=== PATIENT | female | born 1960 | race Hispanic/Latino ===

== ENCOUNTER 2019-07-07 20:40 | Emergency (ER) | payer BC, SELFPAY ==
[2019-07-07 21:16] VITALS: BP 163/79; PULSE 83; RESP 20; TEMP 36.6; O2SAT 100
--- NOTE | 2019-07-07 21:24 | DI.RAD.S_ITS ---
PROCEDURE: XR CHEST 1V INDICATIONS: SOB, cough, known COVID+ TECHNIQUE: One view of the chest was acquired. COMPARISON: [facility], , CHEST 1 VIEW, 05/05/2017, 17:26. FINDINGS: Surgical changes and devices: None. Lungs and pleura: Lungs demonstrate subtle bilateral lower lobe alveolar opacities. No dense consolidation. No pleural effusions or pneumothorax. Mediastinum: Mediastinal contours appear normal. Heart size is normal. Bones and chest wall: No suspicious bony lesions. Overlying soft tissues appear unremarkable. IMPRESSION: 1. Hazy bibasilar alveolar opacities consistent with known infection. 2. No pleural effusion or pneumothorax. Dictated by: Graciela Samuel M.D. on 07/07/2019 at 21:48 Approved by: Graciela Samuel M.D. on 07/07/2019 at 21:49
--- NOTE | 2019-07-07 21:33 | ED_ITS ---
HPI - SOB/Dyspnea General Chief Complaint: Shortness of Breath/Dyspnea Stated Complaint: SOB, Coughing Time Seen by Provider: 07/07/19 20:41 Source: patient and family Mode of arrival: Ambulatory Limitations: no limitations History of Present Illness HPI Narrative: 58-year-old female diabetic smoker with known leos virus presents with her significant other and a chief complaint of increasing dry and hacking cough over the past few days. She has a positive swab at an outside facility about 1 week ago. She denies any chest pain nor nausea or vomiting but does have nasal congestion, sore throat and dry hacking cough. She denies any significant difficulty with breathing. This is the 1st time she has left her home and about a week. She denies any hemoptysis or other sputum production. Her cough is worse laying flat. MD Complaint: cough Onset (ago): day(s) Severity: moderate Consistency/Duration: constant Relieving factors: upright position Exacerbating factors: lying flat Associated symptoms: fever and wheezing Treatment prior to arrival: bronchodilator Related Data Home oxygen amount: none Previous Rx's Medication Instructions Recorded levothyroxine 0.137 mg PO QAM #7 tab 01/26/16 lisinopril 20 mg PO QDAY #30 tab 05/05/17 benzonatate [Tessalon Perles] 100 mg PO TID PRN #14 cap 07/07/19 Allergies Allergy/AdvReac Type Severity Reaction Status Date / Time cephalexin [From KEFLEX] Allergy Unknown Verified 06/07/18 18:24 Penicillins [PENICILLINS] Allergy Unknown Verified 06/07/18 18:24 Review of Systems Constitutional Constitutional: Denies chills, Reports fatigue, Reports fever(s), Denies frequent falls, Denies lethargy and Denies weakness Eyes Eyes: Denies change in vision, Denies eye discharge, Denies irritation and Denies loss of vision ENT Ears, Nose, Mouth, and Throat: Denies change in voice, Denies dizziness, Denies neck pain, Denies sore throat and Denies throat swelling Cardiovascular Cardiovascular: Denies chest pain, Denies irregular heart rhythm, Denies lightheadedness, Denies palpitations, Denies dyspnea, Denies dyspnea on exertion and Denies orthopnea Respiratory Respiratory: Reports cough, Denies dyspnea, Denies dyspnea on exertion and Denies wheezing Gastrointestinal Gastrointestinal: Denies abdominal pain, Denies change in bowel habits, Denies diarrhea, Denies nausea and Denies vomiting Genitourinary Genitourinary: Denies hematuria, Denies flank pain, Denies urinary incontinence and Denies urinary urgency Musculoskeletal Musculoskeletal: Denies back pain, Denies muscle weakness, Denies neck pain, Denies numbness and Denies tingling Integumentary/Breasts Skin/Breast: Denies pruritus, Denies erythema, Denies rash and Denies wounds Neurologic Neurologic: Denies behavioral changes, Denies confusion, Denies dizziness, Denies frequent falls, Denies loss of vision, Denies numbness, Denies tingling and Denies weakness Psychiatric Psychiatric: Denies anxiety, Denies behavioral changes, Denies confusion, Denies depression, Denies homicidal ideation and Denies suicidal ideation Endocrine Endocrine: Reports fatigue, Denies flushing and Denies palpitations Hematologic/Lymphatic Hematologic/Lymphatic: Denies easy bruising Allergic/Immunologic Allergic/Immunologic: Denies urticaria, Denies throat swelling and Denies wheezing Patient History Social History Smoking Status: Never smoker alcohol intake: current Smoking Status: Never smoker Exam Narrative Exam Narrative: GENERAL: [58] year old patient appears stated age. Well- nourished, well-developed patient, in mild distress. HEAD: Atraumatic. Normocephalic. EYES: Pupils equal round and reactive. Extraocular motions intact. No scleral icterus. No injection or drainage. ENT: Nose without bleeding, purulent drainage. Throat without erythema, tonsillar hypertrophy or exudate. Airway patent. NECK: Trachea midline. Non tender CARDIOVASCULAR: Regular rate and rhythm without murmurs, gallops, or rubs. RESPIRATORY: Faint crackles in B/L bases GASTROINTESTINAL: Abdomen soft, non-tender, nondistended. EXTREMITIES: No edema or joint tenderness. BACK: Nontender without deformity or crepitance. No flank tenderness. NEURO: AOx3. SKIN: No rash or erythema of visible areas Initial Vital Signs Initial Vital Signs: Vital Signs Temperature 97.9 F 07/07/19 21:16 Pulse Rate 83 07/07/19 21:16 Respiratory Rate 20 07/07/19 21:16 Blood Pressure 163/79 H 07/07/19 21:16 Pulse Oximetry 100 07/07/19 21:16 Course Orders Ordered: ED Orders 07/07/19 21:24 XR chest 1V Stat Vital Signs Vital signs: Vital Signs - 8 hr 07/07/19 21:16 Temperature 97.9 F Pulse Rate 83 Respiratory Rate 20 Blood Pressure 163/79 H Pulse Oximetry 100 MDM - SOB/Dyspnea Imaging Data Chest x-ray: Radiologist's Impression: [address] [address] XRay Report Signed Patient: Kristine Auguste [facility]#: [id number] : 2Acct:[id number] Age/Sex: 58 / FDate of Service: 07/07/19 Loc: ED Accession Number: [id number] Procedure: XR chest 1V Ordering Provider: Aki Winston D.O. PROCEDURE: XR CHEST 1V INDICATIONS: SOB, cough, known COVID+ TECHNIQUE: One view of the chest was acquired. COMPARISON: [facility], CHEST 1 VIEW, 05/05/2017, 17:26. FINDINGS: Surgical changes and devices: None. Lungs and pleura: Lungs demonstrate subtle bilateral lower lobe alveolar opacities. No dense consolidation. No pleural effusions or pneumothorax. Mediastinum: Mediastinal contours appear normal. Heart size is normal. Bones and chest wall: No suspicious bony lesions. Overlying soft tissues appear unremarkable. IMPRESSION: 1. Hazy bibasilar alveolar opacities consistent with known infection. 2. No pleural effusion or pneumothorax. Dictated by: Graciela Samuel M.D. on 07/07/2019 at 21:48 Approved by: Graciela Samuel M.D. on 07/07/2019 at 21:49 [facility] Narrative Medical decision making narrative: Patient has very reassuring exam and stable vitals with minimal work of breathing. CXR is consistent with COVID viral pneumonia Discharge Plan Departure Patient Disposition: Home Clinical Impression: 2019 novel coronavirus detected, Pneumonia, viral Discharge Date/Time: 07/07/19 22:00 Instructions: DI for Viral Upper Respiratory Infection -- Adult Activity Restrictions/Additional Instructions: *You have been diagnosed with [ viral pneumonia from coronavirus] *What to do: * per recommendations from the CDC and the [facility] Department of Health * stay home except to get medical care. Restrict activities outside your home, except for getting medical care. Do not go to work, school, or public areas. Avoid using public transportation, ride sharing, or taxis. * separate yourself from other people in your home. * call ahead before visiting your doctor * Wear a facemask * Cover your coughs and sneezes * Clean your hands often * Avoid sharing household items * Clean all high-touch services every day * Monitor your symptoms and seek prompt medical attention if your illness is worsening, particularly with difficulty in breathing. Discussed continuing home isolation * for individuals with symptoms who are confirmed or suspected cases of COVID-19 and are directed to care for themselves at home, discontinue home isolation under the following conditions: 1. At least 72 hours have passed since recovery, defined as resolution of fever without the use of fever reducing medications, and improvement in respiratory symptoms (cough, shortness of breath) AND, 2. At least 7 days have passed since symptoms 1st appeared Individuals with laboratory confirmed COVID-19 who have not had any symptoms may discontinue home isolation when at least 7 days have passed since the date of their 1st COVID-19 diagnostic test and have had no subsequent illness Prescriptions: New benzonatate [Tessalon Perles] 100 mg capsule 100 mg PO TID PRN (Reason: cough) Qty: 14 RF: 0 No Action levothyroxine 137 MCG tablet 0.137 mg PO QAM Qty: 7 RF: 0 lisinopril 20 MG tablet 20 mg PO QDAY Qty: 30 RF: 0
--- NOTE | 2019-07-10 14:19 | PC.NURSE ---
Received call from PT who states that prescription from Dr. Winston was not signed and could not be filled. Called in prescription to [facility] at pt request.
--- NOTE | 2019-07-10 16:58 | PC.NURSE ---
Pt's called back, stating that [facility] still did not have script. Called [facility] and spoke w/ pharmacist, gave prescription information. No questions or concerns.
== END 2019-07-07 22:00 | disposition home or self-care (01) ==
PROVIDERS: Emergency Provider Emergency Medicine
DX: U07.1 COVID-19 (principal); J12.89 Other viral pneumonia
CPT/HCPCS: 71045; 99281; 99283

== ENCOUNTER → 2019-08-04 16:34 | Outpatient (CLI) | payer BC, SELFPAY ==
--- NOTE | 2019-08-04 16:36 | DI.RAD.S_ITS ---
PROCEDURE: XR CHEST 2V INDICATIONS: seen 07/06 in ER (+)Covid 19 w/viral pneumonia TECHNIQUE: 2 views of the chest were acquired. COMPARISON: [facility], CR, XR CHEST 1V, 07/07/2019, 21:27. FINDINGS: Surgical changes and devices: None. Lungs and pleura: There has been interval improvement in the aeration of the lungs. The previously noted patchy areas of airspace disease have significantly decreased in the interim. There may be mild residual areas of right lower lobe airspace disease. No new or increasing areas of consolidation are evident. No effusion or pneumothorax is identified. Mediastinum: Mediastinal contours are normal. Heart size is normal. Bones and chest wall: No suspicious bony abnormalities. Soft tissues appear unremarkable. IMPRESSION: Improving aeration of the lungs with minimal residual right lower lobe consolidation. Dictated by: Fritz Harris M.D. on 08/04/2019 at 16:19 Approved by: Fritz Harris M.D. on 08/04/2019 at 16:20
== END ==
PROVIDERS: Referring Provider Physician Assistant; Visit Provider Physician Assistant
DX: U07.1 COVID-19 (principal); J12.89 Other viral pneumonia
CPT/HCPCS: 71046

== ENCOUNTER 2020-07-19 23:37 | Emergency (ER) | payer BC, SELFPAY ==
[2020-07-19 23:55] VITALS: BP 154/84; PULSE 97; RESP 22; TEMP 37.3; O2SAT 98
[2020-07-20] LABS: Add Manual Diff / Slide Review NO; Basophils Absolute Auto 100 /uL (0-100); Eosinophils Absolute Auto 100 /uL (0-450); Eosinophils Percent Auto 0.5 % (2-4); Hematocrit 42.1 % (36-46); Hemoglobin 14.2 g/dL (12.0-16.0); Lymphocytes Absolute Auto 2000 /uL (1100-4500); Mean Corpuscular HGB Conc 33.6 % (30-36); Mean Corpuscular Hemoglobin 30.1 PG (26-34); Mean Corpuscular Volume 89.4 fL (80-100); Monocytes Absolute Auto 900 /uL (0-900); Neutrophils Absolute Auto 8600 /uL (1500-7000); Neutrophils Percent Auto 73.5 % (50-75); Platelet Count 237 X10^3/uL (150-400); Red Blood Cell Count 4.71 X10^6/uL (4.0-5.2); Red Cell Distribution Width 13.1 % (11.6-14.8); White Blood Cell Count 11.8 X10^3/uL (4.5-11.0)
[2020-07-20] MEDS: ONDANSETRON 4 MG/2 ML INJ IV (00:08)
[2020-07-20] MEDS: SODIUM CHLORIDE 0.9% 1,000 ML 1000 ML IV (00:09)
[2020-07-20 00:11] LABS: Alanine Aminotransferase 28 IU/L (<35); Albumin 4.3 g/dL (3.5-5.0); Alkaline Phosphatase 138 U/L (38-126); Aspartate Aminotransferase 21 IU/L (14-36); BUN Creatinine Ratio 43.2 (6-22); Bilirubin Total 1.7 mg/dL (0.2-1.3); Blood Urea Nitrogen 19 mg/dL (7-17); Calcium 9.8 mg/dL (8.4-10.2); Carbon Dioxide 26 mmol/L (22-32); Chloride 98 mmol/L (98-107); Estimated Glomerular Filt Rate > 60.0 mL/min (>60); Globulin 4.1 g/dL (1.7-4.1); Glucose 317 mg/dL (70-100); HEMOLYSIS < 15 (0-50); Lipase 39 U/L (23-300); Potassium 4.1 mmol/L (3.4-5.1); Sodium 134 mmol/L (137-145); Total Protein 8.4 g/dL (6.3-8.2)
[2020-07-20] MEDS: levoFLOXacin 500 MG/100 ML PIGGYBACK 100 MG IV (00:27)
[2020-07-20 00:29] LABS: Bacteria Urine Many (>30); Culture Indicated Urine Specimen Cultured; RBC Urine 1-5/HPF (0-5/HPF); Squamous Epithelial Cell Urine 1-5 /HPF (0-5/HPF); WBC Urine >100/HPF (0-5/HPF)
--- NOTE | 2020-07-20 00:32 | ED.ABDPAIN ---
HPI - Abdominal Pain General Chief Complaint: Abdominal Pain Stated Complaint: Chills, vomiting brown stuff yesterday Time Seen by Provider: 07/19/20 23:40 Source: patient Mode of arrival: Ambulatory Limitations: no limitations History of Present Illness HPI narrative: 59-year-old female nonsmoker with history of hypothyroid, asthma and gallbladder disease presents with a chief complaint of fever, shaking chills as well as lower abdominal pain, nausea and vomiting over the past few days. She has become fatigued, dizzy and lightheaded. She denies any chest pain or shortness of breath. She has had no runny nose, sore throat or cough. She does have a history of gallbladder disease and states this feels somewhat like that, however she denies upper abdominal pain or any association with eating. She states perhaps her emesis was dark yesterday but she has no history of liver disease, bleeding ulcers, varices or significant alcohol abuse. She takes no blood thinners. She does have lower abdominal discomfort and frequent urination along with burning and urgency. She denies any change in her bowel habits. She states her pain is worse when she moves and improves with rest. She denies any radiation of her pain MD complaint: abdominal pain Onset (ago): day(s) Pain Consistency: constant Location: suprapubic Severity: moderate Quality: cramping, stabbing and aching Radiation: none Migration to: no migration Relieving factors: rest Exacerbating factors: movement Associated symptoms: nausea, vomiting, fever and chills Related Data Previous Rx's Medication Instructions Recorded levothyroxine 0.137 mg PO QAM #7 tab 01/26/16 albuterol sulfate 90 mcg/actuation 2 puff INHALATION Q4-6H PRN #18 08/04/19 aerosol inhaler gram ciprofloxacin HCl 500 mg PO BID #14 tab 07/20/20 hydrocodone-acetaminophen 1 tab PO Q4-6H PRN #10 tab 07/20/20 Allergies Allergy/AdvReac Type Severity Reaction Status Date / Time cephalexin [From KEFLEX] Allergy Unknown Verified 08/04/19 16:02 Penicillins [PENICILLINS] Allergy Unknown Verified 08/04/19 16:02 Review of Systems Constitutional Constitutional: Reports body ache(s), Reports chills, Denies fatigue, Denies fever(s), Denies frequent falls, Denies lethargy and Denies weakness Eyes Eyes: Denies change in vision, Denies eye discharge, Denies irritation and Denies loss of vision ENT Ears, Nose, Mouth, and Throat: Denies change in voice, Denies dizziness, Denies neck pain, Denies sore throat and Denies throat swelling Cardiovascular Cardiovascular: Denies chest pain, Denies irregular heart rhythm, Denies lightheadedness, Denies palpitations, Denies dyspnea, Denies dyspnea on exertion and Denies orthopnea Respiratory Respiratory: Denies cough, Denies dyspnea, Denies dyspnea on exertion and Denies wheezing Gastrointestinal Gastrointestinal: Reports abdominal pain, Denies change in bowel habits, Denies diarrhea, Reports nausea and Reports vomiting Musculoskeletal Musculoskeletal: Denies neck pain and Denies numbness Integumentary/Breasts Skin/Breast: Denies pruritus, Denies erythema, Denies rash and Denies wounds Neurologic Neurologic: Denies behavioral changes, Denies confusion, Denies dizziness, Denies frequent falls, Denies loss of vision, Denies numbness and Denies weakness Psychiatric Psychiatric: Denies anxiety, Denies behavioral changes, Denies confusion, Denies depression, Denies homicidal ideation and Denies suicidal ideation Endocrine Endocrine: Denies fatigue, Denies flushing and Denies palpitations Hematologic/Lymphatic Hematologic/Lymphatic: Denies easy bruising Allergic/Immunologic Allergic/Immunologic: Denies urticaria, Denies throat swelling and Denies wheezing Patient History Social History Smoking Status: Never smoker alcohol intake: current Smoking Status: Never smoker Exam Narrative Exam Narrative: GENERAL: [59] year old patient appears stated age. Well-nourished, well-developed patient, in mild distress. HEAD: Atraumatic. Normocephalic. EYES: Pupils equal round and reactive. Extraocular motions intact. No scleral icterus. No injection or drainage. ENT: Nose without bleeding, purulent drainage. Throat without erythema, tonsillar hypertrophy or exudate. Airway patent. NECK: Trachea midline. Non tender CARDIOVASCULAR: Regular rate and rhythm without murmurs, gallops, or rubs. RESPIRATORY: Clear to auscultation. Breath sounds equal bilaterally. No wheezes, rales, or rhonchi. GASTROINTESTINAL: Abdomen soft, mild suprapubic tenderness, nondistended. Bowel sounds present in all 4 quadrants EXTREMITIES: No edema or joint tenderness. BACK: Nontender without deformity or crepitance. No flank tenderness. NEURO: AOx3. SKIN: No rash or erythema of visible areas Initial Vital Signs Initial Vital Signs: Vital Signs Temperature 99.1 F 07/19/20 23:55 Pulse Rate 97 H 07/19/20 23:55 Respiratory Rate 22 07/19/20 23:55 Blood Pressure 154/84 H 07/19/20 23:55 Pulse Oximetry 98 07/19/20 23:55 Course Orders Ordered: ED Orders 07/19/20 23:55 Complete Blood Count AUTO DIFF Stat Comprehensive Metabolic Panel Stat Lipase Stat 07/20/20 00:03 Urine Culture Stat Urine Microscopic Stat 07/20/20 00:52 CT abdomen pelvis w con Stat Ondansetron HCl (Ondansetron 4 Mg/2 Ml Inj) 4 mg IV Q4HR PRN PRN Reason: Nausea And Vomiting Last Admin: 07/20/20 00:08 Dose: 4 mg Documented by: CHAY Discontinued Medications Hydrocodone Bitart/Acetaminophen (Hydrocodone/Acet 5/325 Prepack) 1 bottle MISC SEEINSTR ONE Stop: 07/20/20 02:08 Sodium Chloride (Normal Saline 0.9%) 1,000 mls @ 1,000 mls/hr IV BOLUS ONE Stop: 07/20/20 00:54 Last Admin: 07/20/20 00:09 Dose: 1,000 mls/hr Documented by: CHAY Levofloxacin (Levaquin) 500 mg in 100 mls @ 100 mls/hr IV NOW ONE Stop: 07/20/20 01:12 Last Infusion: 07/20/20 01:52 Dose: 0 mls/hr Documented by: Admin: 07/20/20 00:27 Dose: 100 mls/hr Documented by: ANKITA Ondansetron HCl (Ondansetron 4 Mg Odt Prepack) 1 bottle MISC SEEINSTR ONE Stop: 07/20/20 02:08 Vital Signs Vital signs: Vital Signs - 8 hr 07/19/20 23:55 Temperature 99.1 F Pulse Rate 97 H Respiratory Rate 22 Blood Pressure 154/84 H Pulse Oximetry 98 MDM - Abdominal Pain Lab Data Result diagrams: 07/19/20 23:55 07/19/20 23:55 Labs: Lab Results 07/19/20 07/19/20 07/20/20 Range/Units 23:55 23:55 00:03 WBC 11.8 H (4.5-11.0) X10^3/uL RBC 4.71 (4.0-5.2) X10^6/uL Hgb 14.2 (12.0-16.0) g/dL Hct 42.1 (36-46) % MCV 89.4 (80-100) fL MCH 30.1 (26-34) PG MCHC 33.6 (30-36) % RDW 13.1 (11.6-14.8) % Plt Count 237 (150-400) X10^3/uL Neut % (Auto) 73.5 (50-75) % Lymph % (Auto) 17.0 L (25-40) % [place] % (Auto) 8.0 (3-14) % Eos % (Auto) 0.5 L (2-4) % Baso % (Auto) 1.0 (0-2) % Neut # (Auto) 8600 H (1475-4891) /uL Lymph # (Auto) 2000 (3101-2221) /uL [place] # (Auto) 900 (0-900) /uL Eos # (Auto) 100 (0-450) /uL Baso # (Auto) 100 (0-100) /uL Sodium 134 L (137-145) mmol/L Potassium 4.1 (3.4-5.1) mmol/L Chloride 98 (98-107) mmol/L Carbon Dioxide 26 (22-32) mmol/L BUN 19 H (7-17) mg/dL Creatinine 0.44 L (0.52-1.04) mg/dL Estimated GFR > 60.0 (>60) mL/min BUN/Creatinine Ratio 43.2 H (6-22) Glucose 317 H (70-100) mg/dL Calcium 9.8 (8.4-10.2) mg/dL Total Bilirubin 1.7 H (0.2-1.3) mg/dL AST 21 (14-36) IU/L ALT 28 (<35) IU/L Alkaline Phosphatase 138 H (38-126) U/L Total Protein 8.4 H (6.3-8.2) g/dL Albumin 4.3 (3.5-5.0) g/dL Globulin 4.1 (1.7-4.1) g/dL Albumin/Globulin Ratio 1.0 (1.0-2.8) Lipase 39 (23-300) U/L Urine RBC 1-5/hpf (0-5/HPF) Urine WBC >100/hpf H (0-5/HPF) Ur Squamous Epith Cells 1-5 /hpf (0-5/HPF) Urine Bacteria Many (>30) H (None) Ur Culture Indicated? Specimen cultured Point of care testing: Urine Dip Bedside Urine Glucose 1000 mg/dl Bedside Urine Bilirubin - Negative Bedside Urine Ketone +++ 80 Urine Specific [place] 1.030 Bedside Urine Occult Blood +++ Bedside Urine pH 6.0 Bedside Urine Protein ++ 100 Bedside Urine Urobilinogen - Negative Bedside Urine Nitrite - Negative Bedside Urine Leukocytes + [address] scan - abdomen/pelvis: Radiologist's Impression: Diffuse thickening of urinary bladder wall, possible cystitis MDM Narrative Medical decision making narrative: Multiple etiologies for patient's symptoms considered including: [UTI thought most likely given urinary frequency, urgency, foul smell, lower abdominal pain versus bowel obstruction (thought unlikely given lack of findings on imaging) versus gallbladder disease, considered given her history as well as slight elevation in bilirubin, however absolutely no pain in epigastrium, right upper quadrant and no findings on imaging] Patient's symptoms improved over duration of stay with above-stated therapies. Pain control, no vomiting, tolerating orals Findings and discharge diagnosis discussed with patient/family followed by verbalization of understanding Return precautions discussed with patient/family whom verbalize understanding. Discharge Plan Departure Patient Disposition: Home Clinical Impression: UTI (urinary tract infection) Qualifiers: Urinary tract infection type: acute cystitis Hematuria presence: with hematuria Qualified Code(s): N30.01 - Acute cystitis with hematuria Instructions: DI for Urinary Tract Infection (UTI) Activity Restrictions/Additional Instructions: *You have been diagnosed with [abdominal pain due to urinary tract infection with acute cystitis] *What to do: *Take medications as directed: [facility] *Follow up with your primary care provider in 2-3 days, call for an appointment. Let them know you were seen in the Emergency Department and that we ask that you be seen in follow up *Return to ER if you should have any new, worsening or concerning symptoms, such as [increasing pain, persistent vomiting, other bothersome symptoms] Prescriptions: New ciprofloxacin HCl 500 mg tablet 500 mg PO BID Qty: 14 RF: 0 hydrocodone-acetaminophen 5-325 mg tablet 1 tab PO Q4-6H PRN (Reason: pain) Qty: 10 RF: 0 No Action albuterol sulfate 90 mcg/actuation HFA aerosol inhaler 2 puff INHALATION Q4-6H PRN (Reason: shortness of breath or wheezing) Qty: 18 RF: 0 levothyroxine 137 MCG tablet 0.137 mg PO QAM Qty: 7 RF: 0 Referrals: [facility] [Outside] Stand Alone Forms: Work Release Note
--- NOTE | 2020-07-20 00:52 | DI.CT.S_ITS ---
PROCEDURE: CT ABDOMEN PELVIS W CON INDICATIONS: fever, vomiting, significant lower abdomen pain TECHNIQUE: After the administration of intravenous contrast, 5 mm thick sections acquired from the diaphragm to the symphysis. 5 mm coronal and sagittal reformats were acquired. For radiation dose reduction, the following was used: automated exposure control, adjustment of mA and/or kV according to patient size. COMPARISON: None. FINDINGS: Image quality: Excellent. ABDOMEN: Lung bases: Lung bases are clear. Heart size is normal. Solid organs: Liver is normal in size and enhancement. Gallbladder appears normal. Biliary system is non dilated. Pancreas enhances normally. Spleen is normal in size and enhancement. No adrenal nodules. Kidneys demonstrate normal size and enhancement, but with right greater than left voym-re-ikconldo hydronephrosis. There is slight urothelial enhancement and thickening, a subtle finding, present bilaterally Peritoneum and bowel: Bowel loops demonstrate normal wall thickness and caliber. No free fluid or air. Nodes and vessels: No retroperitoneal or mesenteric adenopathy by size criteria. Aorta and inferior vena cava are normal in size. Miscellaneous: No ventral hernias. PELVIS: Genitourinary: Bladder wall thickness is normal. Miscellaneous: No inguinal hernias or adenopathy. Bones: No suspicious bony lesions. No vertebral body compression fractures. IMPRESSION: A urinary tract infection appears present, as indicated by mild bilateral urothelial contrast enhancement and slight thickening. This is a relatively subtle finding. There appears to be associated right greater than left hydronephrosis, and a slight degree of perinephric edema on the right is seen. The urinary tract stone is not found. No intestinal obstruction or perforation suspected. Probable fibroid uterus given heterogeneity. Dictated by: Rosalio Mendez M.D. on 07/20/2020 at 10:27 Approved by: Rosalio Mendez M.D. on 07/20/2020 at 10:30
[2020-07-20 02:23] VITALS: BP 127/64; PULSE 92; RESP 16; O2SAT 99
[2020-07-20] MEDS: HYDROCODONE/ACET 5/325 PREPACK 1 BOTTLE MISC (02:26)
[2020-07-20] MEDS: ONDANSETRON 4 MG ODT PREPACK 1 BOTTLE MISC (02:26)
== END 2020-07-20 02:30 | disposition home or self-care (01) ==
PROVIDERS: Emergency Provider Emergency Medicine
DX: N30.01 Acute cystitis with hematuria (principal); R11.2 Nausea with vomiting, unspecified; R10.30 Lower abdominal pain, unspecified
CPT/HCPCS: 36415; 74177; 80053; 81003; 81015; 83690; 85025; 87077; 87086; 87186; 96361; 96365; 96375; 99284; J1956; J2405; Q9967

== ENCOUNTER 2023-01-05 15:48 | Emergency (ER) | payer BC, SELFPAY ==
[2023-01-05 15:52] VITALS: BP 104/62; PULSE 89; RESP 18; TEMP 36.7; O2SAT 98; BMI 33.6
[2023-01-05 16:02] VITALS: PULSE 88; RESP 13; O2SAT 96
[2023-01-05 16:03] VITALS: BP 138/65; PULSE 85; RESP 14; O2SAT 96
--- NOTE | 2023-01-05 16:33 | ED_ITS ---
HPI - General Adult General Chief complaint: Dizziness Stated complaint: feels dizzy since yesterday, multiple falls Time Seen by Provider: 01/05/23 16:17 Source: patient Mode of arrival: Wheelchair History of Present Illness HPI narrative: Patient is a 62-year-old female who is here for evaluation of just over 24 hours of feeling dizzy. She states she woke up yesterday morning and felt like the room is spinning. She did have some fullness in her right ear yesterday. Stated that every time she would stand up she would fall over and then become dizzy again. She is having a slight headache. She is a diabetic but is not on insulin and takes no medications for this and does not check her blood sugar. She denies any specific injuries from the falls. No chest pain or shortness of breath. Related Data Previous Rx's Medication Instructions Recorded levothyroxine 137 mcg tablet 0.137 mg PO QAM #7 tabs 01/26/16 albuterol sulfate 90 mcg/actuation 2 puff inhalation Q4-6H PRN 08/04/19 aerosol inhaler shortness of breath or wheezing #18 grams ciprofloxacin HCl 500 mg tablet 500 mg PO BID #14 tabs 07/20/20 hydrocodone 5 mg-acetaminophen 325 1 tab PO Q4-6H PRN pain #10 tabs 07/20/20 mg tablet meclizine 25 mg tablet 25 mg PO BID PRN dizziness #20 tabs 01/05/23 Allergies Allergy/AdvReac Type Severity Reaction Status Date / Time cephalexin [From KEFLEX] Allergy Unknown Verified 08/04/19 16:02 Penicillins [PENICILLINS] Allergy Unknown Verified 08/04/19 16:02 Review of Systems Constitutional Constitutional: Reports system reviewed and no additional complaints, except as documented ENT Ears, Nose, Mouth, and Throat: Reports system reviewed and no additional complaints, except as documented Cardiovascular Cardiovascular: Reports system reviewed and no additional complaints, except as documented Respiratory Respiratory: Reports system reviewed and no additional complaints, except as documented Gastrointestinal Gastrointestinal: Reports system reviewed and no additional complaints, except as documented Integumentary/Breasts Skin/Breast: Reports system reviewed and no additional complaints, except as documented Neurologic Neurologic: Reports system reviewed and no additional complaints, except as documented Hematologic/Lymphatic On Anticoagulants: No Patient History Social History (Reviewed 01/05/23 @ 17:35 by ANDRES Vu Smoking Status: Never smoker alcohol intake: current Smoking Status: Never smoker Substance Use Type: does not use Exam Initial Vital Signs Initial Vital Signs: Vital Signs Temperature 98.1 F 01/05/23 15:52 Pulse Rate 89 01/05/23 15:52 Respiratory Rate 18 01/05/23 15:52 Blood Pressure 104/62 01/05/23 15:52 Pulse Oximetry 98 01/05/23 15:52 Oxygen Delivery Method Room Air 01/05/23 15:52 HENMT Head: normal to inspection and normocephalic Eyes General: Yes appearance normal, both eyes and all related structures Resp Effort & Inspection: normal respiratory effort Auscultation: clear to auscultation bilaterally Cardio Rate: regular rate Rhythm: regular rhythm Neuro General: patient alert, patient awake, patient oriented x3 and moves all extremities Speech: speech normal Gait: normal gait Motor: muscle tone normal throughout Extrem General: normal to inspection and capillary refill normal Course Orders Ordered: ED Orders 01/05/23 16:20 Basic Metabolic Panel Stat Complete Blood Count AUTO DIFF Stat 01/05/23 16:22 EKG-12 Lead Stat Discontinued Medications Sodium Chloride (Normal Saline 0.9%) 1,000 mls @ 1,000 mls/hr IV BOLUS ONE Stop: 01/05/23 17:31 Last Admin: 01/05/23 16:50 Dose: 1,000 mls/hr Documented By: JOSÉ MIGUEL Meclizine HCl (Meclizine Hcl 12.5 Mg Tablet) 25 mg PO NOW ONE Stop: 01/05/23 16:33 Last Admin: 01/05/23 16:49 Dose: 25 mg Documented By: JOSÉ MIGUEL Vital Signs Vital signs: Vital Signs - 8 hr 01/05/23 15:52 01/05/23 16:02 01/05/23 16:03 Temperature 98.1 F Pulse Rate 89 88 85 Respiratory Rate 18 13 14 Blood Pressure 104/62 Pulse Oximetry 98 96 96 Oxygen Delivery Method Room Air 01/05/23 16:03 Temperature Pulse Rate Respiratory Rate Blood Pressure 138/65 Pulse Oximetry Oxygen Delivery Method Medical Decision Making Lab Data Lab results reviewed: Yes I reviewed the patient's lab results. 01/05/23 16:20 01/05/23 16:20 Labs: Lab Results 01/05/23 Range/Units 16:20 WBC 6.9 (4.5-11.0) X10^3/uL RBC 4.00 (4.0-5.2) X10^6/uL Hgb 12.2 (12.0-16.0) g/dL Hct 35.8 L (36-46) % MCV 89.5 (80-100) fL MCH 30.6 (26-34) PG MCHC 34.2 (30-36) % RDW 13.6 (11.6-14.8) % Plt Count 192 (150-400) X10^3/uL Neut % (Auto) 69.4 (50-75) % Lymph % (Auto) 22.5 L (25-40) % [place] % (Auto) 6.0 (3-14) % Eos % (Auto) 1.5 L (2-4) % Baso % (Auto) 0.6 (0-2) % Neut # (Auto) 4800 (1811-3687) /uL Lymph # (Auto) 1500 (0325-8995) /uL [place] # (Auto) 400 (0-900) /uL Eos # (Auto) 100 (0-450) /uL Baso # (Auto) 0 (0-100) /uL Sodium 133 L (137-145) mmol/L Potassium 4.5 (3.4-5.1) mmol/L Chloride 100 (98-107) mmol/L Carbon Dioxide 26 (22-32) mmol/L BUN 19 H (7-17) mg/dL Creatinine 0.50 L (0.52-1.04) mg/dL Estimated GFR > 60 (>60) mL/min BUN/Creatinine Ratio 38.0 H (6-22) Glucose 448 H (80-110) mg/dL Calcium 9.2 (8.4-10.2) mg/dL Point of Care Testing Glucose POC 435 Point of care testing: Point of Care Testing Glucose POC 435 ECG Data Attestation: I personally reviewed and interpreted this ECG as follows: Interpretation: Sinus rhythm Ventricular rate is 79 Normal axis Normal QRS Normal QTC No ST T wave changes MDM Narrative Medical decision making narrative: Low suspicion for CVA/TIA. She does have symptoms that are consistent with peripheral vertigo. It is positional when she turns her head. It occurred when she woke up. She is no other new neurologic symptoms. She is significantly hyperglycemic. She know she is diabetes but does not take her blood sugar at home. She is a complete resolution of symptoms after the meclizine and fluids. No indication for head CT. She was informed to contact her primary doctor to discuss her high blood pressure. Was sent home with a prescription for meclizine. She was given return precautions. She expressed understanding and agreement. Discharge Plan Departure Patient Disposition: Home Clinical Impression: Vertigo, Hyperglycemia Instructions: DI for Vertigo Activity Restrictions/Additional Instructions: Recommend that you continue to take all of your medications as directed. Contact your primary doctor for follow-up to discuss your symptoms today and also your elevated blood sugar. Return to the emergency department for new or worsening symptoms. Prescriptions: New meclizine 25 mg tablet 25 mg PO BID PRN (Reason: dizziness) Qty: 20 0RF No Action albuterol sulfate 90 mcg/actuation HFA aerosol inhaler 2 puff INHALATION Q4-6H PRN (Reason: shortness of breath or wheezing) Qty: 18 0RF levothyroxine 137 MCG tablet 0.137 mg PO QAM Qty: 7 0RF ciprofloxacin HCl 500 mg tablet 500 mg PO BID Qty: 14 0RF hydrocodone-acetaminophen 5-325 mg tablet 1 tab PO Q4-6H PRN (Reason: pain) Qty: 10 0RF Stand Alone Forms: Patient Portal/API
[2023-01-05 16:40] LABS: Add Manual Diff / Slide Review NO; Basophils Absolute Auto 0 /uL (0-100); Basophils Percent Auto 0.6 % (0-2); Eosinophils Absolute Auto 100 /uL (0-450); Eosinophils Percent Auto 1.5 % (2-4); Hematocrit 35.8 % (36-46); Hemoglobin 12.2 g/dL (12.0-16.0); Lymphocytes Absolute Auto 1500 /uL (1100-4500); Lymphocytes Percent Auto 22.5 % (25-40); Mean Corpuscular HGB Conc 34.2 % (30-36); Mean Corpuscular Hemoglobin 30.6 PG (26-34); Mean Corpuscular Volume 89.5 fL (80-100); Monocytes Absolute Auto 400 /uL (0-900); Neutrophils Absolute Auto 4800 /uL (1500-7000); Neutrophils Percent Auto 69.4 % (50-75); Platelet Count 192 X10^3/uL (150-400); Red Cell Distribution Width 13.6 % (11.6-14.8); White Blood Cell Count 6.9 X10^3/uL (4.5-11.0)
[2023-01-05 16:47] LABS: Blood Urea Nitrogen 19 mg/dL (7-17); Calcium 9.2 mg/dL (8.4-10.2); Carbon Dioxide 26 mmol/L (22-32); Chloride 100 mmol/L (98-107); Estimated Glomerular Filt Rate > 60 mL/min (>60); Glucose 448 mg/dL (80-110); HEMOLYSIS 30 (0-50); Potassium 4.5 mmol/L (3.4-5.1); Sodium 133 mmol/L (137-145)
[2023-01-05] MEDS: MECLIZINE HCL 12.5 MG TABLET 25 MG PO (16:49)
[2023-01-05] MEDS: SODIUM CHLORIDE 0.9% 1,000 ML 1000 ML IV (16:50)
[2023-01-05 17:59] VITALS: BP 118/95; PULSE 85; RESP 20; TEMP 37; O2SAT 100
== END 2023-01-05 18:01 | disposition home or self-care (01) ==
PROVIDERS: Emergency Provider Emergency Medicine
DX: R42 Dizziness and giddiness (principal); E11.65 Type 2 diabetes mellitus with hyperglycemia; R07.9 Chest pain, unspecified
CPT/HCPCS: 80048; 82962; 85025; 93005; 96360; 99284

== ENCOUNTER 2023-01-11 19:07 | Observation (INO) | payer BC, SELFPAY ==
[2023-01-11] VITALS (17 sets, daily range): BP systolic 106–139; BP diastolic 53–82; PULSE 83–98; RESP 12–32; TEMP 37.7–38.3; O2SAT 94–99; BMI 36.6
[2023-01-11] MEDS: SODIUM CHLORIDE 0.9% 1,000 ML 1000 ML IV ×2 (19:48→21:42)
--- NOTE | 2023-01-11 19:56 | PC.NURSE ---
Addendum entered by Catalina Pascual R.N. 01/12/23 00:39: Wound measures 8cm in length and 6cm in width. Original Note: Open, weeping wound above coccyx with non-blanchable discoloration of blackened tissue with dark red.
--- NOTE | 2023-01-11 21:00 | ED.BACK ---
HPI - Back Pain/Injury General Chief Complaint: Back Pain/Injury Stated Complaint: CYST ON BUTTOCKS Time Seen by Provider: 01/11/23 20:56 Source: patient Mode of arrival: Ambulatory Limitations: no limitations History of Present Illness HPI Narrative: This is a 62-year-old female with untreated diabetes, hypothyroidism, history of vertigo who presents with complaint of pain and wound on her buttocks that she noticed 2 or 3 days ago. Patient states there has been some drainage it has been painful there is some odor. She states she is had chills on and off, some fevers at home. She denies chest pain or shortness of breath no abdominal or back pain. No nausea or vomiting. She is had some constipation but has had bowel movements. No black or bloody stools. She states she is had difficulty keeping the area clean. She is had some urinary frequency no dysuria. Patient states she was not feeling any pain in that area before but does not look in the area regularly. She went to the walk-in clinic and was referred here. She states she is had diabetes for several years, she does not take any of her diabetic medications for at least a couple years because it would cause diarrhea. She does take levothyroxine still. She denies any history of hypertension, dyslipidemia heart attack or stroke. She is had issues with vertigo and takes meclizine as needed. She is been able to ambulate without any issues. Patient states no prior surgeries. She states she has a known gallbladder that is troublesome but she has not ever wanted to have it out. She states allergic to penicillin she gets a rash but states she is had amoxicillin without issue. Patient states no tobacco, alcohol or illicit. She has set up appointment to establish with primary care later in the month. Related Data Home Medications Medication Instructions Recorded Confirmed meclizine 25 mg tablet 25 mg PO BID PRN dizziness 01/11/23 01/11/23 Previous Rx's Medication Instructions Recorded levothyroxine 137 mcg tablet 0.137 mg PO QAM #7 tabs 01/26/16 Allergies Allergy/AdvReac Type Severity Reaction Status Date / Time cephalexin [From KEFLEX] Allergy Unknown Verified 01/11/23 18:23 Penicillins [PENICILLINS] Allergy Unknown Verified 01/11/23 18:23 Review of Systems Review of Systems ROS Unobtainable: All systems reviewed & are unremarkable except as noted in HPI and below Patient History Medical History Obesity Social History Smoking Status: Never smoker alcohol intake: current Smoking Status: Never smoker Substance Use Type: does not use Exam Narrative Exam Narrative: GENERAL: Alert and oriented x three, obese female in [id number] distress. HEENT: Head normocephalic, atraumatic, EOMI, pupils reactive, face symmetric, moist mucous membranes NECK: Supple, full range of motion CARDIOVASCULAR: Regular rate and rhythm without murmurs, rubs or gallops. RESPIRATORY: Breath sounds equal bilaterally, no wheezes rales or rhonchi. ABDOMEN: Soft, nontender. Normoactive bowel sounds all 4 quadrants. No guarding or rebound, rigidity, no mass : No CVA tenderness, patient has large 8 x 6 cm wound on her buttocks at the top of the gluteal crease, there is some purple discoloration and when cleansed has firm indurated area with no palpable abscess but it able to express some purulent fluid. There is quite a bit of odor. Patient has quite a bit of stool strict on her underwear and in the area. She is mild tenderness over the area and I am able to obtain a good wound culture without much pain. There is some mild erythema that extends along the crease of the buttocks but no induration moving towards the rectal opening. EXTREMITIES: Normal range of motion, no clubbing or edema. Neurovascularly intact NEUROLOGICAL: Cranial nerves II through XII grossly intact. Moving all extremities. Normal gait. Patient is able to ambulate to and from the bathroom. SKIN: Warm, dry, no petechiae, no rashes or lesions. Initial Vital Signs Initial Vital Signs: Vital Signs Temperature 101 F H 01/11/23 19:16 Pulse Rate 95 H 01/11/23 19:16 Respiratory Rate 18 01/11/23 19:16 Blood Pressure 139/82 01/11/23 19:16 Pulse Oximetry 98 01/11/23 19:16 Oxygen Delivery Method Room Air 01/11/23 19:16 Course Orders Ordered: ED Orders 01/11/23 19:22 EKG-12 Lead Stat RT Consult Eval and Treat NOW 01/11/23 20:30 Wound Culture and Gram Stain Stat 01/11/23 20:50 Complete Blood Count AUTO DIFF Stat Comprehensive Metabolic Panel Stat Lactate (Lactic Acid) Stat Lipase Stat PTT Partial Thromboplastin Artur Stat Procalcitonin Stat Prothrombin Time INR Stat 01/11/23 21:00 Blood Culture Stat 01/11/23 21:19 Consult to [facility] [place] - Analytic Manager Stat 01/11/23 21:34 CT abdomen pelvis w con Stat Acetaminophen (Acetaminophen 325 Mg Tablet) 650 mg PO Q6H PRN PRN Reason: Fever/Mild Pain (1-3) Last Admin: 01/12/23 01:41 Dose: 650 mg Documented By: ZURDO Al Hydrox/Mg Hydrox/Simethicone (Mag Hydrox/Alum/Simeth 30 Ml Udc) 30 ml PO Q6HR PRN PRN Reason: Dyspepsia Gabapentin (Gabapentin 100 Mg Capsule) 100 mg PO TID GEETA Clindamycin Phosphate (Cleocin) 900 mg in 50 mls @ 50 mls/hr IV Q6H GEETA Last Admin: 01/12/23 03:19 Dose: 50 mls/hr Documented By: Infusion: 01/11/23 23:04 Dose: Infused Documented By: Infusion: 01/11/23 22:18 Dose: 50 mls/hr Documented By: Infusion: 01/11/23 22:02 Dose: 0 mls/hr Documented By: Admin: 01/11/23 21:43 Dose: 50 mls/hr Documented By: JOSSELYN Clindamycin Phosphate 600 mg/ (Sodium Chloride) 104 mls @ 104 mls/hr IV Q8H [facility] Dextrose (D10w) 100 mls @ 1,200 mls/hr IV PRN PRN PRN Reason: Hypoglycemia Lactated Ringer's (Lactated Ringers) 1,000 mls @ 150 mls/hr IV CONT GEETA Last Admin: 01/12/23 02:21 Dose: 150 mls/hr Documented By: ZURDO Insulin Human Lispro (Insulin Lispro 100 Unit/Ml 3ml Vial) 0 unit SUBCUT ACHS [facility]; Protocol Levothyroxine Sodium (Levothyroxine 137 Mcg Tablet) 137 mcg PO QACBREAK [facility] Meclizine HCl (Meclizine Hcl 12.5 Mg Tablet) 25 mg PO BID PRN PRN Reason: dizziness Naloxone HCl (Naloxone 0.4 Mg/Ml Vial) 0.2 mg IV Q2MIN PRN PRN Reason: Opiate Reversal Ondansetron HCl (Ondansetron 4 Mg Odt) 4 mg SL NOW PRN PRN Reason: Nausea And Vomiting Ondansetron HCl (Ondansetron 4 Mg Odt) 4 mg PO Q4HR PRN PRN Reason: Nausea And Vomiting Oxycodone HCl (Oxycodone Ir 5 Mg Tablet) 5 mg PO Q3H PRN PRN Reason: Pain, Moderate (4-6) Oxycodone HCl (Oxycodone Ir 10 Mg Tablet) 10 mg PO Q3H PRN PRN Reason: Pain, Severe (7-10) Sennosides (Sennosides 8.6 Mg Tablet) 17.2 mg PO BEDTIME PRN PRN Reason: constipation Discontinued Medications Sodium Chloride (Normal Saline 0.9%) 1,000 mls @ 1,000 mls/hr IV BOLUS ONE Stop: 01/11/23 20:21 Last Infusion: 01/11/23 21:20 Dose: Infused Documented By: Admin: 01/11/23 19:48 Dose: 1,000 mls/hr Documented By: JOSSELYN Sodium Chloride (Normal Saline 0.9%) 1,000 mls @ 1,000 mls/hr IV BOLUS ONE Stop: 01/11/23 22:33 Last Infusion: 01/11/23 23:31 Dose: Infused Documented By: Infusion: 01/11/23 22:19 Dose: 1,000 mls/hr Documented By: Infusion: 01/11/23 22:02 Dose: 0 mls/hr Documented By: Admin: 01/11/23 21:42 Dose: 1,000 mls/hr Documented By: JOSSELYN Ketorolac Tromethamine (Ketorolac 30 Mg/Ml Vial) 15 mg IV NOW ONE Stop: 01/11/23 21:37 Last Admin: 01/11/23 21:42 Dose: 15 mg Documented By: JOSSELYN Ondansetron HCl (Ondansetron 4 Mg/2 Ml Inj) 4 mg IV NOW PRN PRN Reason: Nausea And Vomiting Last Admin: 01/11/23 21:42 Dose: 4 mg Documented By: JOSSELYN Vital Signs Vital signs: Vital Signs - 8 hr 01/11/23 20:00 01/11/23 20:00 01/11/23 20:01 Pulse Rate 89 88 Respiratory Rate 17 17 Blood Pressure 117/60 Pulse Oximetry 99 99 Oxygen Delivery Method Room Air 01/11/23 20:02 01/11/23 20:02 01/11/23 20:30 Pulse Rate 89 90 Respiratory Rate 21 32 H Blood Pressure 110/59 L Pulse Oximetry 99 99 Oxygen Delivery Method 01/11/23 20:31 01/11/23 20:31 01/11/23 21:00 Pulse Rate 90 89 Respiratory Rate 25 H 31 H Blood Pressure 120/62 Pulse Oximetry 99 98 Oxygen Delivery Method Room Air 01/11/23 21:00 01/11/23 21:48 01/11/23 22:00 Pulse Rate Respiratory Rate 15 Blood Pressure 120/62 127/66 Pulse Oximetry Oxygen Delivery Method 01/11/23 22:00 01/11/23 22:30 01/11/23 22:31 Pulse Rate 90 87 Respiratory Rate 20 27 H Blood Pressure 106/54 L Pulse Oximetry 97 96 Oxygen Delivery Method Room Air 01/11/23 22:31 01/11/23 23:00 01/11/23 23:00 Pulse Rate 87 85 Respiratory Rate 27 H 21 Blood Pressure 108/58 L Pulse Oximetry 96 97 Oxygen Delivery Method 01/11/23 23:30 01/11/23 23:30 Pulse Rate 83 Respiratory Rate Blood Pressure 115/53 L Pulse Oximetry 94 Oxygen Delivery Method MDM - Back Pain/Injury Lab Data 01/11/23 20:50 01/11/23 20:50 Labs: Lab Results 01/11/23 01/11/23 Range/Units 20:50 21:49 WBC 9.9 (4.5-11.0) X10^3/uL RBC 3.83 L (4.0-5.2) X10^6/uL Hgb 11.6 L (12.0-16.0) g/dL Hct 33.9 L (36-46) % MCV 88.4 (80-100) fL MCH 30.3 (26-34) PG MCHC 34.3 (30-36) % RDW 13.1 (11.6-14.8) % Plt Count 179 (150-400) X10^3/uL Neut % (Auto) 77.2 H (50-75) % Lymph % (Auto) 12.9 L (25-40) % [place] % (Auto) 8.8 (3-14) % Eos % (Auto) 0.7 L (2-4) % Baso % (Auto) 0.4 (0-2) % Neut # (Auto) 7700 H (4239-0495) /uL Lymph # (Auto) 1300 (1542-6051) /uL [place] # (Auto) 900 (0-900) /uL Eos # (Auto) 100 (0-450) /uL Baso # (Auto) 0 (0-100) /uL PT 14.9 H (10.1-12.7) SECONDS INR 1.3 (0.9-1.3) APTT 31 (26-36) SECONDS Sodium 136 L (137-145) mmol/L Potassium 4.4 (3.4-5.1) mmol/L Chloride 103 (98-107) mmol/L Carbon Dioxide 24 (22-32) mmol/L BUN 13 (7-17) mg/dL Creatinine 0.46 L (0.52-1.04) mg/dL Estimated GFR > 60 (>60) mL/min BUN/Creatinine Ratio 28.3 H (6-22) Glucose 306 H D (80-110) mg/dL Lactate 1.6 (0.7-2.1) mmol/L Calcium 9.1 (8.4-10.2) mg/dL Total Bilirubin 1.2 (0.2-1.3) mg/dL AST 19 (14-36) IU/L ALT 26 (<35) IU/L Alkaline Phosphatase 133 H (38-126) U/L Total Protein 7.8 (6.3-8.2) g/dL Albumin 3.9 (3.5-5.0) g/dL Globulin 3.9 (1.7-4.1) g/dL Albumin/Globulin Ratio 1.0 (1.0-2.8) Lipase 26 (23-300) U/L Procalcitonin 0.05 (<0.5) ng/mL Urine Color Yellow Urine Appearance Cloudy Urine pH 5.5 (4.5-8.0) Ur Specific [place] 1.025 (1.000-1.035) Urine Protein 2+ H (Negative) Urine Glucose (UA) 3+ H (Negative) g/dL Urine Ketones 1+ H (NEGATIVE) Urine Occult Blood 3+ H (Negative) Urine Nitrate Positive H (Negative) Urine Bilirubin Negative (NEGATIVE) Urine Urobilinogen 4.0 H (0.2) E.U./dL Ur Leukocyte Esterase 1+ H (NEGATIVE) Urine RBC 10-30/hpf H (0-5/HPF) Urine WBC >100/hpf H (0-5/HPF) Ur Squamous Epith Cells 5-10 /hpf H (0-5/HPF) Urine Bacteria Many (>30) H (None) Urine Yeast 10-30/hpf H (None) Ur Culture Indicated? Specimen cultured Imaging Data CT scan - abdomen/pelvis: Radiologist's Impression: [address] [id number] [address] Scan Report Signed Patient: Kristine Auguste MR#: [id number] : 1960 Acct:[id number] Age/Sex: 62 / F Date of Service: 01/11/23 Loc: ED Accession Number: [id number] Procedure: CT abdomen pelvis w con Ordering Provider: Cris Chairez D.O. PROCEDURE: CT ABDOMEN PELVIS W CON INDICATIONS: wound, purulent drainage top of buttocks, +dm TECHNIQUE: After the administration of intravenous contrast, axial sections acquired from the lung bases to the pubic symphysis. Coronal and sagittal reformats were performed. For radiation dose reduction, the following was used: automated exposure control, adjustment of mA and/or kV according to patient size. COMPARISON: [facility], CT, CT ABDOMEN PELVIS W CON, 07/20/2020, 1:21. FINDINGS: Image quality: Excellent. Lung bases: Unremarkable. Heart: No significant findings. ABDOMEN: Liver: Hepatic steatosis is seen.. Gallbladder: Gallbladder is within normal limits. Biliary ducts: Unremarkable. Pancreas: Unremarkable. Spleen: Unremarkable. Adrenal Glands: 1.3 x 0.7 cm hypodense nodule in left adrenal gland is seen unchanged from prior study. Kidneys and Ureters: No hydronephrosis or hydroureter. Bilateral peripelvic renal cysts are seen. No gross solid appearing renal lesion.. Stomach and Bowel: Stomach, small bowel loops, and colon are unremarkable. No peritoneal abscess collection. Peritoneum: No abnormal intraperitoneal fluid. No free air. Ventral Wall: No hernias. Abdominal Nodes: No retroperitoneal or mesenteric adenopathy by size criteria. Vessels: Aorta and inferior vena cava are normal in size. PELVIS: Pelvic Organs: Uterus and bilateral ovaries are within normal limits. Bladder: Unremarkable. Pelvic Nodes: Prominent bilateral inguinal lymph nodes are seen suggestive of reactive inflammatory nodes. Miscellaneous: Significant subcutaneous soft tissue edema and fat stranding in posterior lower back soft tissue at midline over the sacrum and coccyx. No discrete drainable peripherally enhancing fluid collection is noted. Bones: No bony erosive changes. No suspicious bony lesions. No acute vertebral body compression fracture. IMPRESSION: 1. Suggestion of cellulitis and possible early abscess collection in midline posterior lower pelvic soft tissue at the level of sacrum and coccyx. No discrete drainable abscess collection. 2. Mildly prominent bilateral inguinal lymph nodes suggestive of reactive inflammatory nodes. 3. No evidence of osteomyelitis in adjacent lower sacrum and coccyx. Dictated by: Vega Chacko M.D. on 01/11/2023 at 22:36 Approved by: Vega Chacko M.D. on 01/11/2023 at 22:40 ECG Data Attestation: I personally reviewed and interpreted this ECG as follows: Interpretation: Sinus rhythm rate of 92 IL 148 QRS 86 and QTC of 4-5. No acute ST elevation or depression noted. Patient has prior from 05/05/2017 with no acute changes MDM Narrative Medical decision making narrative: This is a 62-year-old female uncontrolled diabetic who has appears to be potentially abscess/sacral decubitus wound. Patient states she is only noticed it for several days but it appears much older, it is fairly indurated there is some pus being expressed we were able to cleanse it and debride some of the top skin off exposing small amount of subcutaneous tissue. No bony exposure that is about 8 x 6 cm. Patient's notes she has not taken medication for diabetes for several years and she is early nontender on examination making me suspect she is got some neuropathy in place. There is some obvious stool in the area that is likely contributing to her infection. Initial temperature was elevated but recheck almost immediately afterwards was appropriate, slightly elevated but patient has not been hypotensive or tachycardic. She does not have a lot of other systemic symptoms currently. Labs, IV antibiotics, fluids and CT to evaluate for abscess versus phlegmon versus potential osteomyelitis was obtained. Suspect patient may require debridement in the OR an IV antibiotics and wound care. Workup today shows no acute sepsis currently. Patient had fever initially but on recheck was appropriate white count is appropriate hemoglobin is 11, platelets are 179 leftward shift, coags appropriate, sodium 136, glucose is 306, BUN 13 normal bicarb, anion gap is 9. No suspicion of DKA. LFTs are appropriate. Protocol is negative. anion gap is 9, bicarb is appropriate, suspicion for DKA is unlikely more hyperglycemia. CT abd/pelvis-so cellulitic changes but no discrete drainable abscess. No clear signs of osteomyelitis. Patient started on IV antibiotics has been hemodynamically stable but wound does not not appear new and I do not think that she will do very well with her uncontrolled diabetes with oral outpatient antibiotics. Discussed with Dr. Arriola tele-hospitalist: accepts for admission. Will see how patient does with antibiotics before surgery consultation. Discharge Plan Departure Patient Disposition: Admitted As Inpatient Clinical Impression: Decubitus ulcer of sacral region, Cellulitis of buttock, Uncontrolled diabetes mellitus Admit Date/Time: 01/11/23 23:32 Admit Provider: Fabrice Arriola
[2023-01-11 21:17] LABS: INR 1.3 (0.9-1.3); Prothrombin Time 14.9 SECONDS (10.1-12.7)
[2023-01-11 21:19] LABS: Add Manual Diff / Slide Review NO; Basophils Absolute Auto 0 /uL (0-100); Basophils Percent Auto 0.4 % (0-2); Eosinophils Absolute Auto 100 /uL (0-450); Eosinophils Percent Auto 0.7 % (2-4); Hematocrit 33.9 % (36-46); Hemoglobin 11.6 g/dL (12.0-16.0); Lymphocytes Absolute Auto 1300 /uL (1100-4500); Lymphocytes Percent Auto 12.9 % (25-40); Mean Corpuscular HGB Conc 34.3 % (30-36); Mean Corpuscular Hemoglobin 30.3 PG (26-34); Mean Corpuscular Volume 88.4 fL (80-100); Monocytes Absolute Auto 900 /uL (0-900); Monocytes Percent Auto 8.8 % (3-14); Neutrophils Absolute Auto 7700 /uL (1500-7000); Neutrophils Percent Auto 77.2 % (50-75); PTT Partial Thromboplastin Tim 31 SECONDS (26-36); Platelet Count 179 X10^3/uL (150-400); Red Blood Cell Count 3.83 X10^6/uL (4.0-5.2); Red Cell Distribution Width 13.1 % (11.6-14.8); White Blood Cell Count 9.9 X10^3/uL (4.5-11.0)
[2023-01-11 21:22] LABS: Lactate (Lactic Acid) 1.6 mmol/L (0.7-2.1)
[2023-01-11 21:23] LABS: Alanine Aminotransferase 26 IU/L (<35); Albumin 3.9 g/dL (3.5-5.0); Alkaline Phosphatase 133 U/L (38-126); Aspartate Aminotransferase 19 IU/L (14-36); BUN Creatinine Ratio 28.3 (6-22); Bilirubin Total 1.2 mg/dL (0.2-1.3); Blood Urea Nitrogen 13 mg/dL (7-17); Calcium 9.1 mg/dL (8.4-10.2); Carbon Dioxide 24 mmol/L (22-32); Chloride 103 mmol/L (98-107); Estimated Glomerular Filt Rate > 60 mL/min (>60); Globulin 3.9 g/dL (1.7-4.1); Glucose 306 mg/dL (80-110); HEMOLYSIS < 15 (0-50); Lipase 26 U/L (23-300); Potassium 4.4 mmol/L (3.4-5.1); Sodium 136 mmol/L (137-145); Total Protein 7.8 g/dL (6.3-8.2)
--- NOTE | 2023-01-11 21:34 | DI.CT.S_ITS ---
PROCEDURE: CT ABDOMEN PELVIS W CON INDICATIONS: wound, purulent drainage top of buttocks, +dm TECHNIQUE: After the administration of intravenous contrast, axial sections acquired from the lung bases to the pubic symphysis. Coronal and sagittal reformats were performed. For radiation dose reduction, the following was used: automated exposure control, adjustment of mA and/or kV according to patient size. COMPARISON: [facility], CT, CT ABDOMEN PELVIS W CON, 07/20/2020, 1:21. FINDINGS: Image quality: Excellent. Lung bases: Unremarkable. Heart: No significant findings. ABDOMEN: Liver: Hepatic steatosis is seen.. Gallbladder: Gallbladder is within normal limits. Biliary ducts: Unremarkable. Pancreas: Unremarkable. Spleen: Unremarkable. Adrenal Glands: 1.3 x 0.7 cm hypodense nodule in left adrenal gland is seen unchanged from prior study. Kidneys and Ureters: No hydronephrosis or hydroureter. Bilateral peripelvic renal cysts are seen. No gross solid appearing renal lesion.. Stomach and Bowel: Stomach, small bowel loops, and colon are unremarkable. No peritoneal abscess collection. Peritoneum: No abnormal intraperitoneal fluid. No free air. Ventral Wall: No hernias. Abdominal Nodes: No retroperitoneal or mesenteric adenopathy by size criteria. Vessels: Aorta and inferior vena cava are normal in size. PELVIS: Pelvic Organs: Uterus and bilateral ovaries are within normal limits. Bladder: Unremarkable. Pelvic Nodes: Prominent bilateral inguinal lymph nodes are seen suggestive of reactive inflammatory nodes. Miscellaneous: Significant subcutaneous soft tissue edema and fat stranding in posterior lower back soft tissue at midline over the sacrum and coccyx. No discrete drainable peripherally enhancing fluid collection is noted. Bones: No bony erosive changes. No suspicious bony lesions. No acute vertebral body compression fracture. IMPRESSION: 1. Suggestion of cellulitis and possible early abscess collection in midline posterior lower pelvic soft tissue at the level of sacrum and coccyx. No discrete drainable abscess collection. 2. Mildly prominent bilateral inguinal lymph nodes suggestive of reactive inflammatory nodes. 3. No evidence of osteomyelitis in adjacent lower sacrum and coccyx. Dictated by: Vega Chacko M.D. on 01/11/2023 at 22:36 Approved by: Vega Chacko M.D. on 01/11/2023 at 22:40
[2023-01-11 21:39] LABS: Procalcitonin 0.05 ng/mL (<0.5)
[2023-01-11] MEDS: ONDANSETRON 4 MG/2 ML INJ IV (21:42)
[2023-01-11] MEDS: KETOROLAC 30 MG/ML VIAL 15 MG IV (21:42)
[2023-01-11] MEDS: CLINDAMYCIN 900 MG/50 ML PIGGYBACK 50 MG IV (21:43)
--- NOTE | 2023-01-11 21:53 | PC.NURSE ---
REHAB OFFICE COORDINATOR NOTE: pt was assisted to the restroom, she had blood observed during harinder care blood is bright red in color. Reported to RN.
--- NOTE | 2023-01-11 23:50 | PM.HP.1 ---
History of Present Illness History of Present Illness Chief complaint: CYST ON BUTTOCKS Narrative: 62 y/o with PMH of DM, hypothyroidism, obesity, presents to ED few days after she noticed swelling and tenderness over the tailbone. She had chills and fever on and off as well. She noticed smelly secretion from the area. Diagnosed with cellulitis and admitted for iv abx considering size of infected area. PFSH Medical History Obesity Social History Smoking Status: Never smoker alcohol intake: current Meds Home Medications and Allergies Home Medications Medication Instructions Recorded Confirmed Type levothyroxine 137 mcg tablet 0.137 mg PO QAM #7 tabs 01/26/16 01/11/23 Rx meclizine 25 mg tablet 25 mg PO BID PRN dizziness 01/11/23 01/11/23 History Allergies Allergy/AdvReac Type Severity Reaction Status Date / Time cephalexin [From KEFLEX] Allergy Unknown Verified 01/11/23 18:23 Penicillins [PENICILLINS] Allergy Unknown Verified 01/11/23 18:23 Review of Systems Constitutional Comments: fever and chills Cardiovascular Comments: w/o chest pain or palpitations Respiratory Comments: w/o shortness of breath Gastrointestinal Comments: w/o complaints Genitourinary Comments: chronic urinary incontinence, using pads Neurologic Comments: b/l lower leg diabetic neuropathy - numbness and neuropathic pain Exam Vital Signs (past 8 hours): - 01/11/23 19:16 01/11/23 19:27 01/11/23 19:30 Temperature 101 F H Pulse Rate 95 H 98 H 96 H Respiratory Rate 18 18 24 Blood Pressure 139/82 Pulse Oximetry 98 95 97 Oxygen Delivery Method Room Air 01/11/23 19:35 01/11/23 19:48 01/11/23 19:48 Temperature 99.8 F H Pulse Rate 90 Respiratory Rate 12 Blood Pressure 128/63 Pulse Oximetry 99 Oxygen Delivery Method Room Air 01/11/23 20:00 01/11/23 20:00 01/11/23 20:01 Temperature Pulse Rate 89 88 Respiratory Rate 17 17 Blood Pressure 117/60 Pulse Oximetry 99 99 Oxygen Delivery Method Room Air 01/11/23 20:02 01/11/23 20:02 01/11/23 20:30 Temperature Pulse Rate 89 90 Respiratory Rate 21 32 H Blood Pressure 110/59 L Pulse Oximetry 99 99 Oxygen Delivery Method 01/11/23 20:31 01/11/23 20:31 01/11/23 21:00 Temperature Pulse Rate 90 89 Respiratory Rate 25 H 31 H Blood Pressure 120/62 Pulse Oximetry 99 98 Oxygen Delivery Method Room Air 01/11/23 21:00 01/11/23 21:48 01/11/23 22:00 Temperature Pulse Rate Respiratory Rate 15 Blood Pressure 120/62 127/66 Pulse Oximetry Oxygen Delivery Method 01/11/23 22:00 Temperature Pulse Rate 90 Respiratory Rate 20 Blood Pressure Pulse Oximetry 97 Oxygen Delivery Method Room Air Oxygen Delivery Method Room Air Const Other: laying in bed in no distress Eyes Other: nadine, eomi Resp Other: CTA Cardio Other: RRR GI Other: obese, not distended Skin Other: gluteal cleft with indurated area, small amount of secretions Neuro Other: w/o acute deficits Psych Other: appropriate mood and affect Objective Labs 01/11/23 20:50 01/11/23 20:50 Labs: Laboratory Results - last 24 hr 01/11/23 20:50 WBC 9.9 RBC 3.83 L Hgb 11.6 L Hct 33.9 L MCV 88.4 MCH 30.3 MCHC 34.3 RDW 13.1 Plt Count 179 Neut % (Auto) 77.2 H Lymph % (Auto) 12.9 L Pershing % (Auto) 8.8 Eos % (Auto) 0.7 L Baso % (Auto) 0.4 Neut # (Auto) 7700 H Lymph # (Auto) 1300 [place] # (Auto) 900 Eos # (Auto) 100 Baso # (Auto) 0 PT 14.9 H INR 1.3 APTT 31 Sodium 136 L Potassium 4.4 Chloride 103 Carbon Dioxide 24 BUN 13 Creatinine 0.46 L Estimated GFR > 60 BUN/Creatinine Ratio 28.3 H Glucose 306 H D Lactate 1.6 Calcium 9.1 Total Bilirubin 1.2 AST 19 ALT 26 Alkaline Phosphatase 133 H Total Protein 7.8 Albumin 3.9 Globulin 3.9 Albumin/Globulin Ratio 1.0 Lipase 26 Procalcitonin 0.05 Assessment & Plan Assessment and plan (1) Cellulitis of buttock: Status: Acute Plan: Started on clindamycin She will probably need I&D in the OR but now CT w/o obvious fluid collection IVFs (2) Uncontrolled diabetes mellitus: Status: Acute Plan: She used to be on metformin but quit some time ago. Now willing to try again. She had difficulty tolerating GI side effects. I will start SS for now. She could start alternative oral hypoglycemic to avoid diarrhea from metformin with close wound. (3) Hypertension: Status: Acute Plan: on no treatment. Right now hypotensive (4) Hypothyroid: Status: Acute Plan: Levothyroxine (5) Obesity: Status: Acute Plan: weight loss encouraged
[2023-01-12] VITALS (9 sets, daily range): BP systolic 95–130; BP diastolic 52–72; PULSE 75–94; RESP 17–22; TEMP 36.2–37.1; O2SAT 93–100
[2023-01-12] MEDS: ACETAMINOPHEN 325 MG TABLET 650 MG PO (01:41)
[2023-01-12] MEDS: LACTATED RINGERS 1,000 ML 150 ML IV (02:21)
[2023-01-12 02:36] LABS: Bilirubin Urine UA NEGATIVE (NEGATIVE); Color Urine UA YELLOW; Glucose Urine UA 3+ g/dL (Negative); Ketones Urine UA 1+ (NEGATIVE); Leukocyte Esterase Urine UA 1+ (NEGATIVE); Nitrite Urine UA POSITIVE (Negative); Occult Blood Urine UA 3+ (Negative); Protein Urine UA 2+ (Negative); Specific Gravity Urine UA 1.025 (1.000-1.035)
[2023-01-12 02:38] LABS: Appearance Urine UA Cloudy; pH Urine UA 5.5 (4.5-8.0)
--- NOTE | 2023-01-12 02:49 | DI.ECHO.S_ITS ---
[facility] +---------+ [facility] +---------+ : : [address] : : : : [id number] : : : : Phone: [phone] Echocardiogram Report + + :Name: ASHLYNLEONID FORREST Study Date: 01/12/2023 Height: 63 in : :[facility] ReadingLocation: Weight: 206 lb: : Gender: Female BSA: 2.0 m2 : :: 1960 Age: 62 yrs BP: 98/58 mmHg: :Reason For Study: MURMUR : :Ordering Physician: DEBBIE, : :SOBEIDA Mazariegos MD Performed By: Maria Luz Rendon : :Referring: SOBEIDA WILLIAM MD : + + Interpretation Summary The left ventricle is normal in size. The left ventricular ejection fraction is normal. The ejection fraction is estimated to be 60-65%. Diastolic parameters suggest a pseudonormalization pattern, consistent with probable elevated filling pressures. The right ventricle is normal in size and function. The aortic valve is moderately calcified. There is mild to moderately reduced leaflet mobility. The peak aortic velocity is 2.7 m/sec. The aortic valve mean gradient is 15 mmHg. The calculated aortic valve area is 1.5 cm2. Overall mild aortic stenosis. There is no hemodynamically significant valvular aortic stenosis. There is mild to moderate aortic regurgitation. There is mild tricuspid regurgitation. The right ventricular systolic pressure is estimated to be at least 24 mmHg based on an estimated right atrial pressure of 8 mm Hg. Procedure: A two-dimensional transthoracic echocardiogram with color flow and Doppler was performed. The study quality was technically adequate. There is no prior echocardiogram noted for this patient. The patient was in sinus rhythm with heart rates between 74-80 bpm during the exam. Left Ventricle: The left ventricle is normal in size. Left ventricular wall thickness is mildly increased. There is no thrombus. The ejection fraction is estimated to be 60-65%. The left ventricular ejection fraction is normal. There are no focal wall motion abnormalities. Diastolic parameters suggest a pseudonormalization pattern, consistent with probable elevated filling pressures. Right Ventricle: The right ventricle is normal in size and function. Atria: The left atrium is moderately dilated. Right atrial size is normal. There is no Doppler evidence for an interatrial shunt. Mitral Valve: There is moderate to severe mitral annular calcification. No significant mitral valve stenosis. There is trace mitral regurgitation. Aortic Valve: The aortic valve is trileaflet. The aortic valve is moderately calcified. There is mild to moderately reduced leaflet mobility. There is mild aortic stenosis. The peak aortic velocity is 2.7 m/sec. The aortic valve mean gradient is 15 mmHg. The calculated aortic valve area is 1.5 cm2. There is no hemodynamically significant valvular aortic stenosis. There is mild to moderate aortic regurgitation. Tricuspid Valve: The tricuspid valve is normal in structure and function. The right ventricular systolic pressure is estimated to be at least 24 mmHg based on an estimated right atrial pressure of 8 mm Hg. There is mild tricuspid regurgitation. Pulmonic Valve: The pulmonic valve is not well seen, but is grossly normal. There is trace pulmonic regurgitation. Great Vessels: The aortic root is normal size. The dimensions of the ascending aorta are normal. The IVC is of normal diameter and collapses less than 50% with a sniff. This suggests a right atrial pressure of 8 mm Hg. Pericardium/ Pleura There is no pericardial effusion. There is an anterior echo-free space consistent with a fat pad. There is no pleural effusion. MMode/2D Measurements & Calculations LVIDd: 5.0 cm LVOT diam: 2.0 cm LVIDs: 3.0 cm Ao root diam: 2.9 cm FS: 38.4 % asc Aorta Diam: 3.3 cm IVSd: 1.0 cm Ao Arch Diam (Prox Trans): 2.8 cm LVPWd: 1.1 cm LV krishnamurthy. diameter/BSA (cm/m^2): 2.5 LV sys. diameter/BSA (cm/m^2): 1.6 LA A2 area: 21.0 cm2 RA long axis: 4.5 cm LA A4 area: 22.1 cm2 RA area: 14.7 cm2 LA length (vol): 5.2 cm RA vol: 40.6 ml LA vol: 76.0 ml RA : 20.7 ml/m2 LA vol index: 38.8 ml/m2 IVC diam: 2.0 cm RVD1 (basal): 3.8 cm RVD2 (mid): 2.8 cm TAPSE: 2.1 cm Doppler Measurements & Calculations Ao V2 max: 270.7 cm/sec LVOT Max Deni: 129.0 cm/sec Ao V2 mean: 172.1 cm/sec LV V1 max P.7 mmHg Ao max P.5 mmHg LV V1 VTI: 27.3 cm Ao mean P.5 mmHg PAPA(I,D): 1.6 cm2 Ao V2 VTI: 55.2 cm PAPA(V,D): 1.5 cm2 sev ratio: 0.49 PAPA indexed to BSA (cm^2/m^2): 0.80 AI P1/2t: 464.1 msec AI dec slope: 211.3 cm/sec2 MV E max deni: 127.0 cm/sec TR max deni: 201.4 cm/sec MV A max deni: 95.4 cm/sec TR max P.2 mmHg MV E/A: 1.3 PA V2 max: 104.9 cm/sec Med Peak E' Deni: 6.4 cm/sec PA V2 mean: 76.1 cm/sec E/E' med: 20.0 PA mean P.5 mmHg Lat Peak E' Deni: 5.5 cm/sec PA pr(Accel): 29.3 mmHg E/E' lat: 23.0 E/e' average: 21.5 MV dec time: 0.22 sec MVA(VTI): 2.0 cm2 MV V2 mean: 88.2 cm/sec SV(LVOT): 86.2 ml MV mean P.6 mmHg MV V2 VTI: 43.0 cm Reading Physician:11:38 AM
[2023-01-12 03:05] LABS: Bacteria Urine Many (>30); Culture Indicated Urine Specimen Cultured; RBC Urine 10-30/HPF (0-5/HPF); Squamous Epithelial Cell Urine 5-10 /HPF (0-5/HPF); WBC Urine >100/HPF (0-5/HPF)
[2023-01-12] MEDS: CLINDAMYCIN 900 MG/50 ML PIGGYBACK 50 MG IV ×2 (03:19→15:57)
[2023-01-12] MEDS: LEVOTHYROXINE 137 MCG TABLET PO (06:10)
--- NOTE | 2023-01-12 06:55 | PC.ADMIT ---
[email or web address] Chalo Wasserman 144 Admission Note: Patient admitted to AC unit from ED at 00:40. A/O x 4, cooperative with care. BS 280 upon admit. Denied pain. Patient oriented to room, shown how to use call light. Bed in low and locked position, call light within reach and bed alarm on. LR running at 150/hr. The patient,Kristine Maurice,62 y/o, was given written information regarding hospital policies, unit procedures and contact persons. Patient's smoking status: Never smoker. Vital Signs - 8 hr 01/11/23 23:00 01/11/23 23:00 01/11/23 23:30 Temperature Pulse Rate 85 Respiratory Rate 21 Blood Pressure 108/58 L 115/53 L Pulse Oximetry 97 Oxygen Delivery Method 01/11/23 23:30 01/12/23 00:00 01/12/23 00:01 Temperature Pulse Rate 83 85 Respiratory Rate Blood Pressure 95/52 L Pulse Oximetry 94 97 Oxygen Delivery Method 01/12/23 00:01 01/12/23 00:30 01/12/23 00:30 Temperature Pulse Rate 86 83 Respiratory Rate 22 19 Blood Pressure 98/58 L Pulse Oximetry 97 93 Oxygen Delivery Method Room Air Room Air 01/12/23 04:30 Temperature 97.5 F L Pulse Rate 75 Respiratory Rate 19 Blood Pressure 101/56 L Pulse Oximetry 97 Oxygen Delivery Method
[2023-01-12] MEDS: INSULIN LISPRO 100 UNIT/ML 3ML VIAL SUBCUT ×4 (08:12→20:24)
[2023-01-12 08:52] LABS: Add Manual Diff / Slide Review NO; BUN Creatinine Ratio 36.2 (6-22); Basophils Absolute Auto 100 /uL (0-100); Basophils Percent Auto 0.7 % (0-2); Blood Urea Nitrogen 17 mg/dL (7-17); Calcium 9.1 mg/dL (8.4-10.2); Carbon Dioxide 24 mmol/L (22-32); Chloride 102 mmol/L (98-107); Eosinophils Absolute Auto 100 /uL (0-450); Eosinophils Percent Auto 1.1 % (2-4); Estimated Glomerular Filt Rate > 60 mL/min (>60); Glucose 311 mg/dL (80-110); HEMOLYSIS < 15 (0-50); Hematocrit 33.4 % (36-46); Hemoglobin 11.3 g/dL (12.0-16.0); Lymphocytes Absolute Auto 1500 /uL (1100-4500); Lymphocytes Percent Auto 12.7 % (25-40); Mean Corpuscular HGB Conc 33.7 % (30-36); Mean Corpuscular Hemoglobin 30.1 PG (26-34); Mean Corpuscular Volume 89.4 fL (80-100); Monocytes Absolute Auto 1200 /uL (0-900); Monocytes Percent Auto 10.7 % (3-14); Neutrophils Absolute Auto 8600 /uL (1500-7000); Neutrophils Percent Auto 74.8 % (50-75); Platelet Count 185 X10^3/uL (150-400); Potassium 4.2 mmol/L (3.4-5.1); Red Blood Cell Count 3.74 X10^6/uL (4.0-5.2); Red Cell Distribution Width 13.4 % (11.6-14.8); Sodium 136 mmol/L (137-145); White Blood Cell Count 11.5 X10^3/uL (4.5-11.0)
[2023-01-12] MEDS: INSULIN GLARGINE 100 UNIT/ML 3ML PEN 10 UNIT SUBCUT (13:22)
[2023-01-12] MEDS: GABAPENTIN 100 MG CAPSULE PO ×2 (15:57→20:17)
--- NOTE | 2023-01-12 15:57 | CM.DANOTE ---
Reviewed EMR and team rounds for pt status and anticipated home d/c needs. Pt found to be sleeping at time of this DELIVERY OF [employer]'s visit. Payor: [place] [facility] PCP: U/K Pt is a 62 year-old F with a medical hx of DM, Hypothyroidism, obesity. Presented to the ED on 01/11 with swelling, tenderness, and a foul smell coming from a cyst just over the top of her tailbone. Dx is cellulitis, she was admitted for IV ABO's. Pending progress of antibiotics, they have placed a surgical consult to further evaluate the need for a I-D. DCP will continue to follow for next steps and anticipated home d/c needs. Discharge Planning/Care Management CM Discharge Assessment Start: 01/12/23 15:47 Freq: Status: Active Protocol: Document 01/12/23 15:47 DPL (Rec: 01/12/23 15:56 DPL [id number]) Discharge Planning Assessment Assigned Automotive Service Manager KD Negron Advance Directives? No History Provided By Medical Record Comment Pt found to be sleeping at time of this assessment. Prior Living Arrangements Mobile home Household Members other Type of transporation used prior to Drives own vehicle admit Independent with ADL's Yes Is patient alert and oriented? Yes Comment N/A Caregiver for Another No Comment N/A Comment N/A Comment Pending recommendations and progress with IV ABO's. Barriers to Discharge No Discharge Plan Home Transportation Arrangement N/A Referrals Initiated None needed Whiteboard Updated in Patient Room with No name and ext. # of Automotive Service Manager Review Status In Process Please Provide Date Initial DC 01/12/23 Assessment Was Performed
--- NOTE | 2023-01-12 17:19 | PM.DS.1 ---
History of Present Illness History of Present Illness Date Patient Seen: 01/12/23 Time Patient Seen: 17:19 Chief complaint: CYST ON BUTTOCKS Narrative: 62 y/o with PMH of DM, hypothyroidism, obesity, presents to ED few days after she noticed swelling and tenderness over the tailbone. She had chills and fever on and off as well. She noticed smelly secretion from the area. Diagnosed with cellulitis and admitted for iv abx considering size of infected area. Discharge Providers Provider Date of admission: 01/11/23 23:32 Discharge Date: 01/12/23 Primary care physician: Doctor Jason MD Consults: 01/11/23 21:19 Consult to [facility] - Homeland Security Program Specialist Stat Comment: help with establishing a PCP for urgent follow up 01/12/23 14:55 Consult to General Surgery Routine Comment: Consulting Provider: Alberto Wilhelm Reason for consultation: gluteal wound Discharge provider: Willy Emery DO Summary Hospital Course Discharge Diagnosis: (1) Cellulitis of buttock with stage I sacral pressure ulcer (2) Uncontrolled diabetes mellitus: (3) Hypertension: (4) Hypothyroid: (5) Obesity Hospital Course: This is a 62 year old female admitted with a buttock cellulitis around an apparent decubitus pressure ulcer. Surgery was consulted but recommended antibiotics and pressure offloading, please note this was based on a review of a wound photo as patient refused surgical evaluation in her room when surgeon arrived. Patient wished to discharge home rather than continued observation after a risk and benefit discussion. She also felt strongly about not taking any insulin despite her high A1c, and felt that the risk of hypoglycemia was too high for her. She was agreeable to resuming metformin. She was encouraged to establish care with primary care for further diabetes management. She was prescribed another 10 days of bactrim for her pressure wound with resulting cellulitis along with some pain medication. Recommend prompt PCP appointment with possible wound care referral as an outpatient depending on improvement. Time Spent with Patient Time spent: Greater than 30 minutes Exam Vital Signs (past 8 hours): - 01/12/23 12:00 01/12/23 12:58 01/12/23 16:00 Temperature 98.7 F Pulse Rate 94 H Respiratory Rate 19 Blood Pressure 130/72 Pulse Oximetry 97 99 96 Oxygen Flow Rate 0 01/12/23 16:10 Temperature 97.8 F Pulse Rate 90 Respiratory Rate 17 Blood Pressure 122/52 L Pulse Oximetry 99 Oxygen Flow Rate 0 Oxygen Delivery Method Room Air Oxygen Flow Rate 0 Narrative Exam Narrative: Gen: WDWN, no acute distress CV RRR Pulm CTA b/l Ext: no edema Neuro Axo x3, ambulating in her room without difficulty. Back: 2x3 cm sacral pressure ulcer, with no surrounding erythema or active drainage. Objective Labs 01/12/23 08:23 01/12/23 08:23 Labs: Laboratory Results - last 24 hr 01/11/23 01/11/23 01/12/23 20:50 21:49 08:23 WBC 9.9 11.5 H RBC 3.83 L 3.74 L Hgb 11.6 L 11.3 L Hct 33.9 L 33.4 L MCV 88.4 89.4 MCH 30.3 30.1 MCHC 34.3 33.7 RDW 13.1 13.4 Plt Count 179 185 Neut % (Auto) 77.2 H 74.8 Lymph % (Auto) 12.9 L 12.7 L [place] % (Auto) 8.8 10.7 Eos % (Auto) 0.7 L 1.1 L Baso % (Auto) 0.4 0.7 Neut # (Auto) 7700 H 8600 H Lymph # (Auto) 1300 1500 [place] # (Auto) 900 1200 H Eos # (Auto) 100 100 Baso # (Auto) 0 100 PT 14.9 H INR 1.3 APTT 31 Sodium 136 L 136 L Potassium 4.4 4.2 Chloride 103 102 Carbon Dioxide 24 24 BUN 13 17 Creatinine 0.46 L 0.47 L Estimated GFR > 60 > 60 BUN/Creatinine Ratio 28.3 H 36.2 H Glucose 306 H D 311 H Lactate 1.6 Calcium 9.1 9.1 Total Bilirubin 1.2 AST 19 ALT 26 Alkaline Phosphatase 133 H Total Protein 7.8 Albumin 3.9 Globulin 3.9 Albumin/Globulin Ratio 1.0 Lipase 26 Procalcitonin 0.05 Urine Color Yellow Urine Appearance Cloudy Urine pH 5.5 Ur Specific [place] 1.025 Urine Protein 2+ H Urine Glucose (UA) 3+ H Urine Ketones 1+ H Urine Occult Blood 3+ H Urine Nitrate Positive H Urine Bilirubin Negative Urine Urobilinogen 4.0 H Ur Leukocyte Esterase 1+ H Urine RBC 10-30/hpf H Urine WBC >100/hpf H Ur Squamous Epith Cells 5-10 /hpf H Urine Bacteria Many (>30) H Urine Yeast 10-30/hpf H Ur Culture Indicated? Specimen cultured PFSH Medical History Obesity Social History household members: other Smoking Status: Never smoker alcohol intake: current Discharge Plan Discharge Plan Patient Disposition: Home Provider Discharge Comment: You were admitted to the hospital with possible abscess, more consistent with pressure wound. Continue to avoid pressure over the area, complete another 10 days of antibiotics at home. Please follow up with primary care as soon as possible for continued diabetes management. Nursing Discharge Comment: Discharge instructions reviewed with patient. Discharge orders & Medications Prescriptions: New sulfamethoxazole-trimethoprim 800-160 mg Tablet 1 tab PO BID 10 Days Qty: 20 0RF oxycodone 5 mg Tablet 5 mg PO Q3H PRN (Reason: Pain, Moderate (4-6)) 7 Days Qty: 20 0RF metformin 1,000 mg tablet 1,000 mg PO BIDWMEAL 30 Days Qty: 60 0RF gabapentin 300 mg capsule 300 mg PO TID 30 Days Qty: 90 0RF Continued levothyroxine 137 MCG tablet 0.137 mg PO QAM Qty: 7 0RF meclizine 25 mg tablet 25 mg PO BID PRN (Reason: dizziness) Follow up/Referrals: Doctor Gomez MD [Primary Care Provider] - Diet/Activity/Treatments Diet: Diet as Tolerated and Carb-consistent/Diabetic Activity: As tolerated with no restrictions. Visit Report/Discharge Packet Stand Alone Forms: Patient Portal/API, Stroke Signs & Symptoms Discharge Data Primary Care Provider: Doctor Jason Discharges patient from system. Discharge Date/Time: 01/12/23 20:55
--- NOTE | 2023-01-12 18:02 | PC.NURSE ---
Pt rested at intervals throughout shift. CBG >300 x 3, covered w/ S/S insulin. HL intact/patent. Wound on coccyx red, and tender w/some serous draingae. MD in to see, Orders for D/C received. Call light w/in reach, pt calls appropriately form needs. Continue w/plan of care.
[2023-01-12] MEDS: TRIMETH/SULFA 160/800 (DS) TABLET 1 TAB PO (20:17)
--- NOTE | 2023-01-12 20:30 | PM.EVENT ---
Event Note Date Patient Seen: 01/12/23 Time Patient Seen: 15:40 Event Note (Rapid Response, Code, or fall): I consulted on the patient. She refused examination. From the photographs the wound appears to be a sacral decubitus wound. Recommend daily dressing changes and off loading.
--- NOTE | 2023-01-12 20:55 | PC.NURSE ---
Patient discharged at 20:55 by private vehicle transferred by wheelchair. Discharge instructions reviewed with patient and significant other. Room clear of all patient belongings.
== END 2023-01-12 20:55 | disposition home or self-care (01) | DRG 603 ==
LOC: ED 23:32 → AC 01-12 07:33
PROVIDERS: Admitting Provider Internal Medicine; Emergency Provider Emergency Medicine; Referring Provider Emergency Medicine; Visit Provider Internal Medicine
DX: L03.317 Cellulitis of buttock (principal); L89.151 Pressure ulcer of sacral region, stage 1; E11.65 Type 2 diabetes mellitus with hyperglycemia; E03.9 Hypothyroidism, unspecified
CPT/HCPCS: 36415; 74177; 80048; 80053; 81001; 82962; 83605; 83690; 84145; 85025; 85610; 85730; 87040; 87070; 87075; 87077; 87086; 87147; 87186; 87205; 93005; 93306; 96365; 96375; 99284; G0378; J1815; J1885; J2405; Q9967